=== PATIENT | male | born 1950 | race Caucasian/White ===

== ENCOUNTER 2019-03-29 08:45 | Emergency (ER) | payer MEDICARE ==
[2019-03-29 09:06] VITALS: BP 158/82; PULSE 63; RESP 18; TEMP 97.6
[2019-03-29] MEDS ORDERED: KETOROLAC 60 MG/2 ML VIAL IM STA (09:31)
[2019-03-29] MEDS ORDERED: ORPHENADRINE 30 MG/ML 2 ML VIAL IM STA (09:31)
--- NOTE | 2019-03-29 09:46 | ED ---
Back Pain HPI - General Chief Complaint: Back Pain/Injury Stated Complaint: neck pain radiating across shoulders Time Seen by Provider: 03/29/19 09:21 Source: patient, RN notes reviewed Limitations: no limitations - History of Present Illness Initial Comments: 68-year-old male presents emergency Department chief complaint of left shoulder, neck discomfort. Patient states has been present for over a week after he was walking briskly and ran into the wall. Patient states she struck his left shoulder. Patient states the pain is worse when he turns his head to the left. Patient states he also has pain with range of motion of his left shoulder. Patient denies any paresthesias his arm he does have some pain that radiates down the shoulder region from his neck. Denies headache or dizziness no chest pain or shortness breath no low back pain. Patient states took some Tylenol with some relief of symptoms. - Related Data Home Medications Medication Instructions Recorded Confirmed Acetaminophen Tab [Tylenol Tab] 650 mg PO BID PRN 03/29/19 03/29/19 Previous Rx's Medication Instructions Recorded Ibuprofen [Motrin] 600 mg PO Q8HR PRN #20 tab 03/29/19 Methocarbamol [Robaxin] 500 mg PO TID PRN #15 tab 03/29/19 Allergies Allergy/AdvReac Type Severity Reaction Status Date / Time Penicillins Allergy Unknown Verified 03/29/19 09:45 Childhood Review of Systems ROS Statement: Those systems with pertinent positive or pertinent negative responses have been documented in the HPI. ROS Other: All systems not noted in ROS Statement are negative. Past Medical History Past Medical History: No Reported History History of Any Multi-Drug Resistant Organisms: None Reported Past Surgical History: Appendectomy, Hernia Repair Past Psychological History: No Psychological Hx Reported Smoking Status: Never smoker Past Alcohol Use History: None Reported Past Drug Use History: None Reported General Exam Limitations: no limitations General appearance: alert, in no apparent distress Head exam: Present: atraumatic, normocephalic, normal inspection Eye exam: Present: normal appearance, PERRL, EOMI. Absent: scleral icterus, conjunctival injection, periorbital swelling ENT exam: Present: normal exam, normal oropharynx, mucous membranes moist Neck exam: Present: normal inspection, tenderness (left trapezius tenderness, cervical paraspinal tenderness), full ROM (Discomfort with left turning). Absent: meningismus, lymphadenopathy Respiratory exam: Present: normal lung sounds bilaterally. Absent: respiratory distress, wheezes, rales, rhonchi, stridor Cardiovascular Exam: Present: regular rate, normal rhythm, normal heart sounds. Absent: systolic murmur, diastolic murmur, rubs, gallop, clicks GI/Abdominal exam: Present: soft, normal bowel sounds. Absent: distended, tenderness, guarding, rebound, rigid Extremities exam: Present: normal inspection, full ROM, normal capillary refill, other (Upper extremity radial pulses equal bilaterally Refill less than 2 seconds). Absent: tenderness, pedal edema, joint swelling, calf tenderness Back exam: Present: normal inspection, full ROM, tenderness (Mild thoracic paraspinal tenderness), muscle spasm, paraspinal tenderness. Absent: vertebral tenderness Neurological exam: Present: alert, oriented X3, CN II-XII intact, reflexes normal. Absent: motor sensory deficit Skin exam: Present: warm, dry, intact, normal color. Absent: rash Course Vital Signs 03/29/19 09:01 Temperature 97.6 F Pulse Rate 63 Respiratory 18 Rate Blood Pressure 158/82 O2 Sat by Pulse 93 L Oximetry Medical Decision Making - Medical Decision Making 60-year-old male present emergency from for trapezius discomfort, shoulder pain. This has been present last week worsening as he has been favoring his shoulder. Patient did have x-rays of his cervical spine thoracic which are negative other than mild degenerative changes. Patient has reproducible pain and over the trapezius muscle. Patient did have EKG which is negative for acute changes. Patient will be discharged with muscle axis and pain medication. - EKG Data EKG Comments: EKG for neck 9:52 sinus bradycardia with first-degree AV block, rate of 57 MO 220 QRS 88 QT/QTC 388/377 Disposition Clinical Impression: Trapezius muscle spasm Disposition: HOME SELF-CARE Condition: Stable Instructions (If sedation given, give patient instructions): Muscle Spasm (ED) Additional Instructions: Please return to the Emergency Department if symptoms worsen or any other concerns. Prescriptions: Ibuprofen [Motrin] 600 mg PO Q8HR PRN #20 tab PRN Reason: Pain Methocarbamol [Robaxin] 500 mg PO TID PRN #15 tab PRN Reason: muscle spasms Is patient prescribed a controlled substance at d/c from ED?: No Referrals: None,Stated [Primary Care Provider] - 1-2 days Time of Disposition: 11:09
--- NOTE | 2019-03-29 10:56 | XR ---
Cervical spine HISTORY: Neck pain, fall 1 week prior 5 views of the cervical spine Cervical vertebral bodies show preserved height and near-anatomic alignment. There is loss of disc he ight at C5-6 and C6-7 with associated spondylosis. There is facet arthropathy. Prevertebral soft tiss ues are normal. Multilevel foraminal encroachment including C5-6 and C6-7 bilaterally. IMPRESSION: Degenerative disc disease. No acute fracture or subluxation.
--- NOTE | 2019-03-29 10:56 | XR ---
Thoracic spine HISTORY: Back pain, fall 1 week prior 3 views of the thoracic spine. There is a mild spinal curvature. Thoracic vertebral bodies show preserved height, alignment, and bon e mineralization. Disc spaces are maintained. IMPRESSION: No fracture or subluxation.
[2019-03-29] MEDS ORDERED: ACET/COD 300 MG/30 MG STARTER PACK 6 TAB BTL PO STA (11:09)
== END 2019-03-29 11:27 | disposition home or self-care (01) ==
LOC: EC 08:45
DX: M62.838 Other muscle spasm (principal); M47.892 Other spondylosis, cervical region; M47.894 Other spondylosis, thoracic region; Z88.0 Allergy status to penicillin
CPT/HCPCS: 93005; 72070; 72050; 99284; 96372 ×2; J2360; J1885

== ENCOUNTER 2019-03-30 06:58 | Emergency (ER) | payer MEDICARE ==
[2019-03-30 07:08] VITALS: TEMP 97.6
[2019-03-30] MEDS ORDERED: SODIUM CHLORIDE 0.9% 1,000 ML IV STA (07:43)
[2019-03-30] MEDS ORDERED: SODIUM CHLORIDE 0.9% 500 ML 500 ML IV STA (07:43)
[2019-03-30] MEDS ORDERED: KETOROLAC 30 MG/ML 1 ML VIAL IVP STA (07:45)
--- NOTE | 2019-03-30 07:50 | ED ---
General Adult HPI - General Chief complaint: Recheck/Abnormal Lab/Rx Stated complaint: back pain Time Seen by Provider: 03/30/19 07:13 Source: patient, RN notes reviewed Mode of arrival: ambulatory Limitations: no limitations - History of Present Illness Initial comments: Patient is a pleasant 68-year-old male presenting to the emergency Department with left upper back discomfort. Patient did walk into a wall accidentally several days ago. Patient has discomfort left posterior shoulder/scapular region since that time. Patient has increased discomfort with range of motion. Discomfort does radiate towards the shoulder and towards the neck. Patient was in the emergency room yesterday and had x-rays and EKG done and was told everything looked well. Patient was given prescription for Tylenol 3 and Robaxin. Last taken around 10 PM last night. Patient this morning felt near syncopal. Patient states he feels fatigued and somewhat weak all over. Patient states discomfort in the area continues, unchanged despite medication. Discomfort increases with range of motion. Patient states his arm does feel a little bit weak when trying to raise it above his head. - Related Data Home Medications Medication Instructions Recorded Confirmed Acetaminophen Tab [Tylenol Tab] 650 mg PO BID PRN 03/29/19 03/30/19 Acetaminophen with Codeine 1 tab PO Q6H PRN 03/30/19 03/30/19 [Tylenol w/codeine #3] Previous Rx's Medication Instructions Recorded Ibuprofen [Motrin] 600 mg PO Q8HR PRN #20 tab 03/29/19 Methocarbamol [Robaxin] 500 mg PO TID PRN #15 tab 03/29/19 Cyclobenzaprine [Flexeril] 10 mg PO TID PRN #12 tablet 03/30/19 Allergies Allergy/AdvReac Type Severity Reaction Status Date / Time Penicillins Allergy Unknown Verified 03/30/19 08:17 Childhood Review of Systems ROS Statement: Those systems with pertinent positive or pertinent negative responses have been documented in the HPI. ROS Other: All systems not noted in ROS Statement are negative. Constitutional: Denies: fever Eyes: Denies: eye pain ENT: Denies: ear pain Respiratory: Denies: cough Cardiovascular: Denies: chest pain Endocrine: Denies: fatigue Gastrointestinal: Denies: abdominal pain Genitourinary: Denies: dysuria Musculoskeletal: Reports: as per HPI Skin: Denies: rash Neurological: Reports: as per HPI. Denies: headache Past Medical History Past Medical History: No Reported History History of Any Multi-Drug Resistant Organisms: None Reported Past Surgical History: Appendectomy, Hernia Repair Past Psychological History: No Psychological Hx Reported Smoking Status: Never smoker Past Alcohol Use History: None Reported Past Drug Use History: None Reported General Exam Limitations: no limitations General appearance: alert, in no apparent distress Head exam: Present: atraumatic Eye exam: Present: normal appearance, PERRL, EOMI. Absent: nystagmus ENT exam: Present: normal oropharynx Neck exam: Present: normal inspection Respiratory exam: Present: normal lung sounds bilaterally. Absent: chest wall tenderness Cardiovascular Exam: Present: regular rate, normal rhythm Expanded Peripheral pulses: 2+: Radial (R), Radial (L), Dorsalis Pedis (R), Dorsalis Pedis (L) GI/Abdominal exam: Present: soft. Absent: distended, tenderness Extremities exam: Present: normal inspection, full ROM, other (Patient is able to fully extend his arm over his head however does appear in discomfort.). Absent: tenderness Back exam: Present: tenderness (Patient does have tenderness medial to the scapula) Neurological exam: Present: alert, oriented X3, CN II-XII intact, other (No weakness noted of left arm exam including active range of motion and signal maintenance technician strength. Sensation is intact.). Absent: motor sensory deficit Expanded Neurological exam: Present: protecting the airway Speech: Present: fluid speech Cranial nerves: EOM's Intact: Normal Motor strength exam: RUE: 5, LUE: 5, RLE: 5, LLE: 5 Eye Response: (4) open spontaneously Motor Response: (6) obeys commands Verbal Response: (5) oriented Psychiatric exam: Present: normal affect, normal mood Skin exam: Present: normal color Course Vital Signs 03/30/19 03/30/19 07:04 08:44 Temperature 97.6 F Pulse Rate 56 L Pulse Rate [ 76 Right Sitting Pulse Oximetery ] Pulse Rate [ 80 Right Standing Pulse Oximetery ] Pulse Rate [ 72 Right Supine Pulse Oximetery ] Respiratory 18 16 Rate Blood Pressure 156/75 Blood Pressure 165/90 [Right Arm Sitting] Blood Pressure 171/81 [Right Arm Standing] Blood Pressure 157/90 [Right Arm Supine] O2 Sat by Pulse 98 99 Oximetry EKG Findings - EKG Comments: EKG Findings:: Sinus bradycardia 56. For screening AV block RI of 220. QRS 90. QT 410. QTc 395. Normal axis. Normal QRS. No acute ST change. Medical Decision Making - Medical Decision Making Patient reevaluated and feels touch better. Patient no longer feels presyncopal. Patient still has some discomfort in the left scapular region. and family updated on results and need for follow-up. Patient states he does not have a primary care physician however is agreeable to get one. Patient will be provided number for primary care physician as well as orthopedics. Patient is receptive to trying a different, less strong muscle relaxer. Patient is advised to hold Robaxin and hold Tylenol 3. Patient does have prescription Motrin which she has not tried yet however states he will try this. - Lab Data Result diagrams: 03/30/19 08:02 03/30/19 08:02 Lab Results 03/30/19 03/30/19 03/30/19 Range/Units 08:02 08:02 08:02 WBC 5.5 (3.8-10.6) k/uL RBC 5.53 (4.30-5.90) m/uL Hgb 14.1 (13.0-17.5) gm/dL Hct 45.6 (39.0-53.0) % MCV 82.4 (80.0-100.0) fL MCH 25.4 (25.0-35.0) pg MCHC 30.9 L (31.0-37.0) g/dL RDW 15.8 H (11.5-15.5) % Plt Count 153 (150-450) k/uL Neutrophils % 75 % Lymphocytes % 17 % Monocytes % 4 % Eosinophils % 2 % Basophils % 1 % Neutrophils # 4.1 (1.3-7.7) k/uL Lymphocytes # 0.9 L (1.0-4.8) k/uL Monocytes # 0.2 (0-1.0) k/uL Eosinophils # 0.1 (0-0.7) k/uL Basophils # 0.0 (0-0.2) k/uL Manual Slide Review Performed RBC Morphology Normal PT 10.1 (9.0-12.0) sec INR 0.9 (<1.2) APTT 24.7 (22.0-30.0) sec D-Dimer 0.32 (<0.60) mg/L FEU Sodium 139 (137-145) mmol/L Potassium 4.6 (3.5-5.1) mmol/L Chloride 106 (98-107) mmol/L Carbon Dioxide 25 (22-30) mmol/L Anion Gap 8 mmol/L BUN 21 H (9-20) mg/dL Creatinine 1.03 (0.66-1.25) mg/dL Est GFR (CKD-EPI)AfAm 86 (>60 ml/min/1.73 sqM) Est GFR (CKD-EPI)NonAf 75 (>60 ml/min/1.73 sqM) Glucose 117 H (74-99) mg/dL Calcium 9.2 (8.4-10.2) mg/dL Magnesium 2.1 (1.6-2.3) mg/dL Total Bilirubin 0.6 (0.2-1.3) mg/dL AST 40 (17-59) U/L ALT 28 (21-72) U/L Alkaline Phosphatase 70 (38-126) U/L Creatine Kinase 465 H (55-170) U/L Troponin I (0.000-0.034) ng/mL Total Protein 6.9 (6.3-8.2) g/dL Albumin 4.3 (3.5-5.0) g/dL 03/30/19 Range/Units 08:02 WBC (3.8-10.6) k/uL RBC (4.30-5.90) m/uL Hgb (13.0-17.5) gm/dL Hct (39.0-53.0) % MCV (80.0-100.0) fL MCH (25.0-35.0) pg MCHC (31.0-37.0) g/dL RDW (11.5-15.5) % Plt Count (150-450) k/uL Neutrophils % % Lymphocytes % % Monocytes % % Eosinophils % % Basophils % % Neutrophils # (1.3-7.7) k/uL Lymphocytes # (1.0-4.8) k/uL Monocytes # (0-1.0) k/uL Eosinophils # (0-0.7) k/uL Basophils # (0-0.2) k/uL Manual Slide Review RBC Morphology PT (9.0-12.0) sec INR (<1.2) APTT (22.0-30.0) sec D-Dimer (<0.60) mg/L FEU Sodium (137-145) mmol/L Potassium (3.5-5.1) mmol/L Chloride (98-107) mmol/L Carbon Dioxide (22-30) mmol/L Anion Gap mmol/L BUN (9-20) mg/dL Creatinine (0.66-1.25) mg/dL Est GFR (CKD-EPI)AfAm (>60 ml/min/1.73 sqM) Est GFR (CKD-EPI)NonAf (>60 ml/min/1.73 sqM) Glucose (74-99) mg/dL Calcium (8.4-10.2) mg/dL Magnesium (1.6-2.3) mg/dL Total Bilirubin (0.2-1.3) mg/dL AST (17-59) U/L ALT (21-72) U/L Alkaline Phosphatase (38-126) U/L Creatine Kinase (55-170) U/L Troponin I <0.012 (0.000-0.034) ng/mL Total Protein (6.3-8.2) g/dL Albumin (3.5-5.0) g/dL - Radiology Data Radiology results: image reviewed (Chest and scapula x-ray revealed no acute process) Disposition Clinical Impression: Thoracic back pain Disposition: HOME SELF-CARE Condition: Stable Instructions (If sedation given, give patient instructions): Back Pain (ED), Thoracic Pain (ED) Additional Instructions: Please follow-up with primary care physician in the next day or 2 for recheck, number provided. Also follow-up with orthopedics, number provided. Consider physical therapy. Return for chest pain, weakness, difficulty breathing, worsening or changing symptoms or other concerns. Discontinue Robaxin and Tylenol 3. Take Prescription Motrin as directed. Prescriptions: Cyclobenzaprine [Flexeril] 10 mg PO TID PRN #12 tablet PRN Reason: Pain Is patient prescribed a controlled substance at d/c from ED?: No Referrals: Martha Li MD [STAFF PHYSICIAN] - 1-2 days Talat Castillo MD [STAFF PHYSICIAN] - 1-2 days Time of Disposition: 09:40
--- NOTE | 2019-03-30 08:34 | XR ---
EXAMINATION TYPE: XR chest 2V DATE OF EXAM: 03/30/2019 COMPARISON: NONE HISTORY: Chest pain TECHNIQUE: Frontal and lateral views of the chest are obtained. FINDINGS: There is no focal air space opacity, pleural effusion, or pneumothorax seen. Left basilar platelike subsegmental atelectasis. The cardiac silhouette size is within normal limits. The osseou s structures are intact. Very minimal degenerative changes of the thoracic spine. IMPRESSION: Left basilar platelike subsegmental atelectasis, otherwise no acute cardiopulmonary proc ess.
--- NOTE | 2019-03-30 08:42 | XR ---
EXAMINATION TYPE: XR scapula LT DATE OF EXAM: 03/30/2019 CLINICAL HISTORY: Left scapula pain TECHNIQUE: 2 views of the left scapula were performed. COMPARISON: None. FINDINGS: There is no acute fracture/dislocation evident in the left scapula. The acromioclavicular and glenohumeral joint spaces appear within normal limits. The visualized ribs are intact and unrem arkable. IMPRESSION: There is no acute fracture or dislocation in the left scapula
[2019-03-30 08:43] LABS: D-Dimer 0.32 mg/L FEU (<0.60); INR 0.9 (<1.2); Partial Thromboplastin Time 24.7 sec (22.0-30.0); Prothrombin Time 10.1 sec (9.0-12.0)
[2019-03-30 08:45] LABS: Basophils % (A) 1 %; Eosinophils # (A) 0.1 k/uL (0-0.7); Eosinophils % (A) 2 %; HCT 45.6 % (39.0-53.0); HGB 14.1 gm/dL (13.0-17.5); Lymphocytes # (A) 0.9 k/uL (1.0-4.8); Lymphocytes % (A) 17 %; MCH 25.4 pg (25.0-35.0); MCHC 30.9 g/dL (31.0-37.0); MCV 82.4 fL (80.0-100.0); Mean Platelet Volume 7.5; Monocytes # (A) 0.2 k/uL (0-1.0); Monocytes % (A) 4 %; Neutrophils # (A) 4.1 k/uL (1.3-7.7); Neutrophils % (A) 75 %; Platelet Count 153 k/uL (150-450); RBC 5.53 m/uL (4.30-5.90); RDW 15.8 % (11.5-15.5); WBC 5.5 k/uL (3.8-10.6)
[2019-03-30 08:46] VITALS: BP 157/90; PULSE 72; RESP 16
[2019-03-30 08:47] LABS: Albumin 4.3 g/dL (3.5-5.0); Calcium 9.2 mg/dL (8.4-10.2); Magnesium 2.1 mg/dL (1.6-2.3); Potassium 4.6 mmol/L (3.5-5.1); Total Bilirubin 0.6 mg/dL (0.2-1.3); Total Protein 6.9 g/dL (6.3-8.2)
== END 2019-03-30 09:48 | disposition home or self-care (01) ==
LOC: EC 06:58
DX: M54.6 Pain in thoracic spine (principal); R53.83 Other fatigue; Z88.0 Allergy status to penicillin
CPT/HCPCS: 36415; 71046; 80053; 82550; 83735; 84484; 85025; 85379; 85610; 85730; 93005; 96361; 96374; 99284

== ENCOUNTER → 2024-10-25 | Outpatient (CLI) | payer MEDICARE ==
--- NOTE | 2024-10-25 12:33 | XR ---
EXAMINATION TYPE: XR chest 2V DATE OF EXAM: 10/25/2024 12:24 PM COMPARISON: 03/30/2019 CLINICAL INDICATION: Male, 74 years old with history of J20.9, congestion and shortness of breath TECHNIQUE: XR chest 2V view(s) obtained. FINDINGS: The heart size is normal. The pulmonary vasculature is normal. The lungs are clear. IMPRESSION: 1. No acute pulmonary process. [facility], , 10/25/2024 12:31 PM
== END | disposition home or self-care (01) ==
LOC: RADXRMAIN 12:02
PROVIDERS: ATTEND Nurse Practitioner Adult Health
DX: J20.9 Acute bronchitis, unspecified (principal)
CPT/HCPCS: 71046

== ENCOUNTER → 2025-03-25 | Outpatient (CLI) | payer MEDICARE ==
--- NOTE | 2025-03-25 14:47 | XR ---
EXAMINATION TYPE: XR chest 2V DATE OF EXAM: 03/25/2025 2:36 PM COMPARISON: 10/25/2024 CLINICAL INDICATION: Male, 74 years old with history of R06.09 OTHER FORMS OF DYSPNEA, TECHNIQUE: XR chest 2V view(s) obtained. FINDINGS: The heart size is normal. The pulmonary vasculature is normal. The lungs are clear. IMPRESSION: 1. No acute pulmonary process. [facility], , 03/25/2025 2:45 PM
== END | disposition home or self-care (01) ==
LOC: RADXRMAIN 14:26
PROVIDERS: ATTEND Family Medicine
DX: R06.09 Other forms of dyspnea (principal)
CPT/HCPCS: 71046